=== PATIENT | female | born 1990 | race Caucasian/White ===

== ENCOUNTER 2019-10-05 16:04 | Emergency (ER) | payer OTHER ==
[~2019-10-05] VITALS: Ht 167.6 cm; Wt 77.1 kg
[2019-10-05 16:45] LABS: BASOPHILS ABSOLUTE AUTO 0.07 K/mm3 (0.00-0.23); BASOPHILS PERCENT AUTO 1 % (0-2); EOSINOPHILS ABSOLUTE AUTO 0.33 K/mm3 (0.00-0.68); EOSINOPHILS PERCENT AUTO 3 % (0-6); Hematocrit 37.9 % (33.0-51.0); Hemoglobin 12.3 g/dL (11.5-16.0); IMMATURE GRAN ABSOLUTE AUTO 0.12 K/mm3 (0.00-0.10); IMMATURE GRAN PERCENT AUTO 1 % (0-1); LYMPHOCYTES PERCENT AUTO 16 % (21-46); MONOCYTES ABSOLUTE AUTO 1.37 K/mm3 (0.16-1.47); MONOCYTES PERCENT AUTO 13 % (4-13); Mean Corpuscular HGB 30.4 pg (26.0-34.0); Mean Corpuscular HGB Conc 32.5 g/dL (31.5-36.5); Mean Corpuscular Volume 94 fL (80-100); Mean Platelet Volume 10.4 fL (9.1-12.4); NEUTROPHILS ABSOLUTE AUTO 7.01 K/mm3 (1.96-9.15); NEUTROPHILS PERCENT AUTO 66 % (41-73); Platelet Count 285 K/mm3 (150-400); RDW Coefficient Variation 13.7 % (11.7-14.2); RDW Standard Deviation 46.9 fL (35.1-46.3); Red Blood Cell Count 4.05 M/mm3 (3.80-5.20)
[2019-10-05 17:13] LABS: Alanine Aminotransfer (ALT/SGP 39 U/L (12-78); Albumin, Blood 3.4 g/dL (3.4-5.0); Albumin/Globulin Ratio 1.1 (0.8-1.8); Alk Phos 82 U/L (50-136); Anion Gap 5 mmol/L (6-16); Aspartate Aminotrans (AST/SGOT 31 U/L (12-37); Bilirubin, Total 0.6 mg/dL (0.1-1.0); Blood Urea Nitrogen 13 mg/dL (8-24); Bun/Creatinine Ratio 25.4 (12.0-20.0); CO2, Blood 24 mmol/L (21-32); Calcium, Blood 8.3 mg/dL (8.5-10.1); Chloride, Blood 111 mmol/L (98-108); Creatinine, Blood 0.51 mg/dL (0.40-1.00); Ethanol (Alcohol), Blood, Med <3 mg/dL; Globulin, Blood 3.2 g/dL (2.2-4.0); Glomerular Filtration Rate >60 (60-); Glucose, Blood 92 mg/dL (70-99); Potassium, Blood 3.8 mmol/L (3.5-5.5); Sodium, Blood 140 mmol/L (136-145); Total Protein, Blood 6.6 g/dL (6.4-8.2)
[2019-10-05] MEDS ORDERED: Robaxin-750750 MG PO (17:55)
[2019-10-05] MEDS ORDERED: Norco 5-325 Ta1 EACH PO (17:55)
== END 2019-10-05 18:00 | disposition home or self-care (01) ==
LOC: ER 16:04
PROVIDERS: Physician Assistant
DX: S22.20XA Unspecified fracture of sternum, initial encounter for closed fracture (principal); M25.551 Pain in right hip; R10.13 Epigastric pain; V49.9XXA Car occupant (driver) (passenger) injured in unspecified traffic accident, initial encounter
CPT/HCPCS: 70450; 71260; 74177; 80053; 83690; 84703; 85025; 93005; 93010; G0480; J1170; J7120; Q9967

== ENCOUNTER 2019-10-08 23:09 | Emergency (ER) | payer OTHER ==
[~2019-10-08] VITALS: Ht 167.6 cm; Wt 77.1 kg
[~2019-10-08 23:09] MED LIST: Norco 5-325 Ta1 EACH PO; Robaxin-750750 MG PO
[2019-10-08] MEDS ORDERED: BUPR75 PO (23:25)
[2019-10-09] MEDS ORDERED: MOTRIN IB200 MG PO (00:38)
== END 2019-10-09 00:30 | disposition home or self-care (01) ==
LOC: ER 23:09
DX: S22.20XD Unspecified fracture of sternum, subsequent encounter for fracture with routine healing (principal); V43.52XD Car driver injured in collision with other type car in traffic accident, subsequent encounter; Z79.899 Other long term (current) drug therapy; F17.210 Nicotine dependence, cigarettes, uncomplicated
CPT/HCPCS: 71046; 99283-25; A9270

== ENCOUNTER 2019-10-16 12:18 | Emergency (ER) | payer OTHER ==
[~2019-10-16] VITALS: Ht 165.1 cm; Wt 77.1 kg
[~2019-10-16 12:18] MED LIST changes: +BUPR75 PO; +MOTRIN IB200 MG PO
[2019-10-16] MEDS ORDERED: Roxicodone5 MG PO (14:57)
== END 2019-10-16 15:10 | disposition home or self-care (01) ==
LOC: ER 12:18
DX: S22.20XA Unspecified fracture of sternum, initial encounter for closed fracture (principal); F17.210 Nicotine dependence, cigarettes, uncomplicated
CPT/HCPCS: 71046; 99284-25

== ENCOUNTER → 2019-12-06 | Outpatient (CLI) | payer OTHER ==
[~2019-12-06] MED LIST changes: +Roxicodone5 MG PO
[2019-12-08 14:10] LABS: CHLAMYDIA TRACHOMATIS, NAA Negative (Negative); HPV 16 Negative (Negative); HPV 18 Negative (Negative); HPV OTHER HR TYPES Negative (Negative); NEISSERIA GONORRHOEAE, NAA Negative (Negative)
== END | disposition home or self-care (01) ==
LOC: LAB 12:00 → LAB SHORT 12:00
PROVIDERS: Obstetrics & Gynecology
DX: Z01.419 Encounter for gynecological examination (general) (routine) without abnormal findings (principal)
CPT/HCPCS: 87491; 87591; 87624; G0123

== ENCOUNTER 2019-12-27 01:18 | Emergency (ER) | payer OTHER ==
[~2019-12-27] VITALS: Ht 167.6 cm; Wt 77.6 kg
[2019-12-27] MEDS ORDERED: ALBU90OI (02:02)
[2019-12-27 02:05] LABS: BASOPHILS ABSOLUTE AUTO 0.06 K/mm3 (0.00-0.23); BASOPHILS PERCENT AUTO 1 % (0-2); EOSINOPHILS ABSOLUTE AUTO 0.24 K/mm3 (0.00-0.68); EOSINOPHILS PERCENT AUTO 3 % (0-6); Hematocrit 38.7 % (33.0-51.0); Hemoglobin 12.4 g/dL (11.5-16.0); IMMATURE GRAN ABSOLUTE AUTO 0.03 K/mm3 (0.00-0.10); IMMATURE GRAN PERCENT AUTO 0 % (0-1); LYMPHOCYTES ABSOLUTE AUTO 2.94 K/mm3 (0.84-5.20); LYMPHOCYTES PERCENT AUTO 32 % (21-46); MONOCYTES ABSOLUTE AUTO 0.88 K/mm3 (0.16-1.47); MONOCYTES PERCENT AUTO 10 % (4-13); Mean Corpuscular HGB 29.9 pg (26.0-34.0); Mean Corpuscular Volume 93 fL (80-100); Mean Platelet Volume 10.4 fL (9.1-12.4); NEUTROPHILS PERCENT AUTO 55 % (41-73); Platelet Count 276 K/mm3 (150-400); RDW Coefficient Variation 13.6 % (11.7-14.2); RDW Standard Deviation 46.8 fL (35.1-46.3); Red Blood Cell Count 4.15 M/mm3 (3.80-5.20); White Blood Cell Count 9.25 K/mm3 (4.00-11.30)
[2019-12-27 02:07] LABS: Source, Urine Clean Catch
[2019-12-27 02:10] LABS: Appearance, Urine Hazy (Clear); Bilirubin, Urine Neg (Neg); Blood, Urine 5+ (Neg); Color, Urine Yellow (P-Yellow); Glucose Qualitative, Urine Neg (Neg); Ketones, Urine Neg (Neg); Leukocyte Esterase, Urine 2+ (Neg); Nitrite, Urine Pos (Neg); Protein, Urine 1+ (Neg); Urobilinogen, Urine NORM (Normal)
[2019-12-27 02:16] LABS: Bacteria Many /hpf; Red Blood Cells, Urine 0-2 /hpf (0-2); Squamous Epithelial Cells Many /hpf (Few)
[2019-12-27 02:22] LABS: Alanine Aminotransfer (ALT/SGP 21 U/L (12-78); Albumin, Blood 3.9 g/dL (3.4-5.0); Albumin/Globulin Ratio 1.3 (0.8-1.8); Alk Phos 72 U/L (50-136); Anion Gap 7 mmol/L (6-16); Aspartate Aminotrans (AST/SGOT 16 U/L (12-37); Bilirubin, Total 0.9 mg/dL (0.1-1.0); Blood Urea Nitrogen 5 mg/dL (8-24); Bun/Creatinine Ratio 6.5 (12.0-20.0); CO2, Blood 24 mmol/L (21-32); Calcium, Blood 8.6 mg/dL (8.5-10.1); Chloride, Blood 111 mmol/L (98-108); Creatinine, Blood 0.78 mg/dL (0.40-1.00); Globulin, Blood 3.1 g/dL (2.2-4.0); Glomerular Filtration Rate >60 (60-); Glucose, Blood 89 mg/dL (70-99); Potassium, Blood 3.4 mmol/L (3.5-5.5); Sodium, Blood 142 mmol/L (136-145)
[2019-12-27] MEDS ORDERED: CEFP200 PO (02:33)
[2019-12-27] MEDS ORDERED: ONDA4ODT MM (02:34)
== END 2019-12-27 03:40 | disposition home or self-care (01) ==
LOC: ER 01:18
PROVIDERS: Emergency Medicine
DX: R11.2 Nausea with vomiting, unspecified (principal); N39.0 Urinary tract infection, site not specified; F17.210 Nicotine dependence, cigarettes, uncomplicated; Z79.51 Long term (current) use of inhaled steroids
CPT/HCPCS: 36415; 80053; 81001; 81025; 83690; 85025; 87077; 87086; 87147; 87186; 96361; 96374; 99284-25; A9270-GY; J2405; J7030

== ENCOUNTER 2020-07-14 17:24 | Emergency (ER) | payer OTHER ==
[~2020-07-14] VITALS: Ht 167.6 cm; Wt 67.1 kg
[~2020-07-14 17:24] MED LIST changes: +ALBU90OI; +CEFP200 PO; +ONDA4ODT MM
[2020-07-14 18:07] LABS: BASOPHILS ABSOLUTE AUTO 0.07 K/mm3 (0.00-0.23); BASOPHILS PERCENT AUTO 1 % (0-2); EOSINOPHILS ABSOLUTE AUTO 0.44 K/mm3 (0.00-0.68); EOSINOPHILS PERCENT AUTO 5 % (0-6); Hematocrit 39.7 % (33.0-51.0); Hemoglobin 12.9 g/dL (11.5-16.0); IMMATURE GRAN ABSOLUTE AUTO 0.02 K/mm3 (0.00-0.10); IMMATURE GRAN PERCENT AUTO 0 % (0-1); LYMPHOCYTES ABSOLUTE AUTO 3.33 K/mm3 (0.84-5.20); LYMPHOCYTES PERCENT AUTO 35 % (21-46); MONOCYTES ABSOLUTE AUTO 0.84 K/mm3 (0.16-1.47); MONOCYTES PERCENT AUTO 9 % (4-13); Mean Corpuscular HGB 30.5 pg (26.0-34.0); Mean Corpuscular HGB Conc 32.5 g/dL (31.5-36.5); Mean Corpuscular Volume 94 fL (80-100); Mean Platelet Volume 10.6 fL (9.1-12.4); NEUTROPHILS ABSOLUTE AUTO 4.95 K/mm3 (1.96-9.15); NEUTROPHILS PERCENT AUTO 51 % (41-73); Platelet Count 229 K/mm3 (150-400); RDW Standard Deviation 48.1 fL (35.1-46.3); Red Blood Cell Count 4.23 M/mm3 (3.80-5.20); White Blood Cell Count 9.65 K/mm3 (4.00-11.30)
[2020-07-14 18:24] LABS: Alanine Aminotransfer (ALT/SGP 18 U/L (12-78); Albumin/Globulin Ratio 1.4 (0.8-1.8); Alk Phos 67 U/L (50-136); Anion Gap 8 mmol/L (6-16); Aspartate Aminotrans (AST/SGOT 16 U/L (12-37); Bilirubin, Total 0.5 mg/dL (0.1-1.0); Blood Urea Nitrogen 10 mg/dL (8-24); Bun/Creatinine Ratio 17.9 (12.0-20.0); CO2, Blood 22 mmol/L (21-32); Calcium, Blood 8.8 mg/dL (8.5-10.1); Chloride, Blood 115 mmol/L (98-108); Creatinine, Blood 0.56 mg/dL (0.40-1.00); Globulin, Blood 2.9 g/dL (2.2-4.0); Glomerular Filtration Rate >60 (60-); Glucose, Blood 92 mg/dL (70-99); Potassium, Blood 3.7 mmol/L (3.5-5.5); Sodium, Blood 145 mmol/L (136-145); Total Protein, Blood 6.9 g/dL (6.4-8.2)
[2020-07-14 19:19] LABS: Source, Urine Clean Catch
[2020-07-14 19:24] LABS: Appearance, Urine Hazy (Clear); Bilirubin, Urine Neg (Neg); Blood, Urine Neg (Neg); Color, Urine Yellow (P-Yellow); Glucose Qualitative, Urine Neg (Neg); Ketones, Urine Neg (Neg); Leukocyte Esterase, Urine Neg (Neg); Nitrite, Urine Neg (Neg); Protein, Urine Neg (Neg); Urobilinogen, Urine NORM (Normal)
[2020-07-14 19:30] LABS: Amorphous Light (0-Heavy); Bacteria Not Seen /hpf; Red Blood Cells, Urine Not Seen /hpf (0-2); Squamous Epithelial Cells Rare /hpf (Few)
[2020-07-14 19:31] LABS: White Blood Cells, Urine Rare /hpf (0-5)
== END 2020-07-14 22:54 | disposition home or self-care (01) ==
LOC: ER 17:24
PROVIDERS: Emergency Medicine
DX: R10.32 Left lower quadrant pain (principal); F17.210 Nicotine dependence, cigarettes, uncomplicated
CPT/HCPCS: 36415; 74177; 76856; 80053; 81001; 81025; 83690; 85025; 96374-59; 96375; 99284-25; J1885; J2405; Q9967

== ENCOUNTER 2020-08-05 18:37 | Emergency (ER) | payer OTHER ==
[~2020-08-05] VITALS: Ht 167.6 cm; Wt 67.1 kg
== END 2020-08-05 20:33 | disposition home or self-care (01) ==
LOC: ER 18:37
DX: M79.671 Pain in right foot (principal); F17.210 Nicotine dependence, cigarettes, uncomplicated; W22.8XXA Striking against or struck by other objects, initial encounter
CPT/HCPCS: 73630; 96372; 99283-25; J1885

== ENCOUNTER → 2020-09-05 | Outpatient (CLI) | payer OTHER ==
[~2020-09-05] MED LIST changes: +ACET325; +ALBU90OI INH; +Bentyl10 MG PO; +CEPH500; +GABA100 PO; +HYDR1TAB94 PO; +IBUP800 PO; +LAMO25 PO; +Robaxin750 MG PO; +Vistaril50 MG PO; +ZIPR20 PO
== END | disposition home or self-care (01) ==
LOC: LAB SHORT 18:08 → LAB 18:08
DX: Z34.90 Encounter for supervision of normal pregnancy, unspecified, unspecified trimester (principal)
CPT/HCPCS: 87077; 87086; 87186

== ENCOUNTER 2020-11-19 12:42 | Emergency (ER) | payer OTHER ==
[~2020-11-19] VITALS: Ht 167.6 cm; Wt 74.8 kg
[~2020-11-19 12:42] MED LIST changes: -ACET325; -ALBU90OI INH; -Bentyl10 MG PO; -CEPH500; -GABA100 PO; -HYDR1TAB94 PO; -IBUP800 PO; -LAMO25 PO; -Robaxin750 MG PO; -Vistaril50 MG PO; -ZIPR20 PO
[2020-11-19] MEDS ORDERED: ZIPR20 PO (13:12)
[2020-11-19 14:16] LABS: Source, Urine Clean Catch
[2020-11-19 14:30] LABS: Appearance, Urine Hazy (Clear); Bilirubin, Urine Neg (Neg); Blood, Urine Neg (Neg); Color, Urine Yellow (P-Yellow); Glucose Qualitative, Urine Neg (Neg); Ketones, Urine Neg (Neg); Leukocyte Esterase, Urine 1+ (Neg); Nitrite, Urine Neg (Neg); Protein, Urine Neg (Neg); Urobilinogen, Urine NORM (Normal)
[2020-11-19 14:41] LABS: Amorphous Mod (0-Heavy); Bacteria Many /hpf; Red Blood Cells, Urine 0-2 /hpf (0-2); Squamous Epithelial Cells Mod /hpf (Few)
[2020-12-10] MEDS ORDERED: ALBU90OI INH (19:38)
[2020-12-10] MEDS ORDERED: Bentyl10 MG PO (19:39)
[2020-12-10] MEDS ORDERED: Vistaril50 MG PO (22:13)
[2021-01-29] MEDS ORDERED: GABA100 PO (13:27)
== END 2020-11-19 15:23 | disposition home or self-care (01) ==
LOC: ER 12:42
PROVIDERS: Physician Assistant
DX: D73.4 Cyst of spleen (principal); F17.210 Nicotine dependence, cigarettes, uncomplicated; Z79.899 Other long term (current) drug therapy
CPT/HCPCS: 74176; 81001; 87077; 87086; 87186; 99284-25

== ENCOUNTER 2020-11-27 13:14 | Emergency (ER) | payer OTHER ==
[~2020-11-27] VITALS: Ht 167.6 cm; Wt 72.6 kg
[~2020-11-27 13:14] MED LIST changes: +ZIPR20 PO
[2020-11-27] MEDS ORDERED: IBUP800 PO (13:43)
[2020-11-27] MEDS ORDERED: ACET325 (13:43)
[2020-11-27] MEDS ORDERED: Robaxin750 MG PO (13:44)
[2020-11-27] MEDS ORDERED: CEPH500 (13:44)
[2020-11-27 13:59] LABS: Source, Urine Clean Catch
[2020-11-27 14:19] LABS: Appearance, Urine Clear (Clear); Bilirubin, Urine Neg (Neg); Blood, Urine Neg (Neg); Color, Urine Yellow (P-Yellow); Glucose Qualitative, Urine Neg (Neg); Ketones, Urine Neg (Neg); Leukocyte Esterase, Urine Neg (Neg); Nitrite, Urine Neg (Neg); Protein, Urine Neg (Neg); Urobilinogen, Urine NORM (Normal)
[2020-11-27] MEDS ORDERED: HYDR1TAB94 PO (14:55)
== END 2020-11-27 15:34 | disposition home or self-care (01) ==
LOC: ER 13:14
PROVIDERS: Physician Assistant
DX: R10.12 Left upper quadrant pain (principal); N39.44 Nocturnal enuresis; F17.210 Nicotine dependence, cigarettes, uncomplicated
CPT/HCPCS: 81003; 81025; 99284

== ENCOUNTER → 2020-11-30 | Outpatient (CLI) | payer OTHER ==
[~2020-11-30] MED LIST changes: +ACET325; +CEPH500; +HYDR1TAB94 PO; +IBUP800 PO; +Robaxin750 MG PO
[2020-11-30 20:53] LABS: Adenovirus F 40/41 Not Detected (NOT DETECT); Astrovirus Not Detected (NOT DETECT); Campylobacter Sp Not Detected (NOT DETECT); Cryptosporidium Not Detected (NOT DETECT); Cyclospora Cayetanensis Not Detected (NOT DETECT); E. Coli O157 Not Detected (NOT DETECT); Entamoeba Histolytica Not Detected (NOT DETECT); Enteroaggregative E. coli-EAEC Not Detected (NOT DETECT); Enteropathogenic E. coli-EPEC Not Detected (NOT DETECT); Enterotoxigenic E. coli-ETEC Not Detected (NOT DETECT); Giardia Lamblia Not Detected (NOT DETECT); Norovirus GI/GII Not Detected (NOT DETECT); Plesiomonas Shigelloides Not Detected (NOT DETECT); Rotavirus A Not Detected (NOT DETECT); Salmonella Sp Not Detected (NOT DETECT); Sapovirus Not Detected (NOT DETECT); Shiga Toxin-prod E. coli-STEC Not Detected (NOT DETECT); Shigella/Enteroin E. coli-EIEC Not Detected (NOT DETECT); Vibrio Cholerae Not Detected (NOT DETECT); Vibrio Sp Not Detected (NOT DETECT); Yersinia Enterocolitica Not Detected (NOT DETECT)
== END | disposition home or self-care (01) ==
LOC: LAB SHORT 11:00
PROVIDERS: Family Medicine
DX: K58.0 Irritable bowel syndrome with diarrhea (principal)
CPT/HCPCS: 0097U; 83993

== ENCOUNTER 2021-01-30 08:25 | Day surgery (SDC) | payer OTHER ==
[~2021-01-30] VITALS: Ht 167.6 cm; Wt 73.2 kg
[~2021-01-30 08:25] MED LIST changes: +ALBU90OI INH; +Bentyl10 MG PO; +GABA100 PO; +Vistaril50 MG PO
[2021-01-30] MEDS ORDERED: LAMO25 PO (09:00)
--- NOTE | 2021-01-30 09:48 | NUR ---
PT GIVEN TAP WATER ENEMA. 400ML, PT TOLERATED WELL, RESULTS CLEAR.
--- NOTE | 2021-01-30 10:38 | NUR ---
01/30/21 Rogelio Brown History, Chart, Medications and Allergies reviewed before start of procedure. MONITOR INTACT WITH CONTINUOUS PULSE OXIMETRY AND INTERMITTENT BP. 3-LEAD EKG REVIEWED WITH PHYSICIAN PRIOR TO START OF PROCEDURE. O2 VIA N/C INTACT THROUGHOUT SEDATION/PROCEDURE. PATIENT DETERMINED TO BE ASA APPROPRIATE FOR PROPOFOL SEDATION PRIOR TO START OF PROCEDURE BY DR. VALENZUELA.
--- NOTE | 2021-01-30 11:21 | NUR ---
Patient up to Ambulate independently. Gait steady. Discharge instructions reviewed with patient. Patient verbalizes understanding. Copy given to patient to take home. Discharged via wheelchair to private car for ride home.
== END 2021-01-30 22:43 | disposition home or self-care (01) ==
LOC: ORSCMMR 08:25 → ORD 09:00 → ORSCMMR 09:00
PROVIDERS: Internal Medicine Gastroenterology
PROC: 0DBN8ZX Excision of Sigmoid Colon, Via Natural or Artificial Opening Endoscopic, Diagnostic (ICD-10-PCS; principal; 2021-01-30 09:00)
DX: R10.30 Lower abdominal pain, unspecified (principal); D12.5 Benign neoplasm of sigmoid colon; Z79.899 Other long term (current) drug therapy; F17.210 Nicotine dependence, cigarettes, uncomplicated
CPT/HCPCS: 88305; J2250; J2704; J7120

== ENCOUNTER 2021-03-24 18:52 | Emergency (ER) | payer OTHER ==
[~2021-03-24] VITALS: Ht 167.6 cm; Wt 72.6 kg
[~2021-03-24 18:52] MED LIST changes: +LAMO25 PO
== END 2021-03-24 21:42 | disposition home or self-care (01) ==
LOC: ER 18:52
DX: R11.2 Nausea with vomiting, unspecified (principal); F17.210 Nicotine dependence, cigarettes, uncomplicated; Z88.8 Allergy status to other drugs, medicaments and biological substances; Z79.899 Other long term (current) drug therapy
CPT/HCPCS: 99283; A9270

== ENCOUNTER 2021-11-17 23:03 | Emergency (ER) | payer OTHER ==
[~2021-11-17] VITALS: Ht 157.5 cm; Wt 49.9 kg
[2021-11-17 23:44] LABS: BASOPHILS ABSOLUTE AUTO 0.04 K/mm3 (0.00-0.23); BASOPHILS PERCENT AUTO 1 % (0-2); EOSINOPHILS ABSOLUTE AUTO 0.03 K/mm3 (0.00-0.68); EOSINOPHILS PERCENT AUTO 1 % (0-6); Hematocrit 38.1 % (33.0-51.0); Hemoglobin 12.6 g/dL (11.5-16.0); IMMATURE GRAN ABSOLUTE AUTO 0.03 K/mm3 (0.00-0.10); IMMATURE GRAN PERCENT AUTO 1 % (0-1); LYMPHOCYTES ABSOLUTE AUTO 0.78 K/mm3 (0.84-5.20); LYMPHOCYTES PERCENT AUTO 13 % (21-46); MONOCYTES ABSOLUTE AUTO 1.13 K/mm3 (0.16-1.47); MONOCYTES PERCENT AUTO 19 % (4-13); Mean Corpuscular HGB 31.5 pg (26.0-34.0); Mean Corpuscular HGB Conc 33.1 g/dL (31.5-36.5); Mean Corpuscular Volume 95 fL (80-100); Mean Platelet Volume 10.3 fL (9.1-12.4); NEUTROPHILS ABSOLUTE AUTO 3.86 K/mm3 (1.96-9.15); NEUTROPHILS PERCENT AUTO 66 % (41-73); Platelet Count 241 K/mm3 (150-400); RDW Coefficient Variation 13.2 % (11.7-14.2); RDW Standard Deviation 46.9 fL (35.1-46.3); White Blood Cell Count 5.87 K/mm3 (4.00-11.30)
[2021-11-18] LABS: Influenza A, PCR NEGATIVE (NEGATIVE); Influenza B, PCR NEGATIVE (NEGATIVE); Resp Syncytial Virus, PCR NEGATIVE (NEGATIVE)
[2021-11-18 00:05] LABS: Alanine Aminotransfer (ALT/SGP 24 U/L (12-78); Albumin, Blood 3.8 g/dL (3.4-5.0); Albumin/Globulin Ratio 1.2 (0.8-1.8); Alk Phos 84 U/L (50-136); Anion Gap 5 mmol/L (6-16); Aspartate Aminotrans (AST/SGOT 13 U/L (12-37); Bilirubin, Total 0.4 mg/dL (0.1-1.0); Blood Urea Nitrogen 3 mg/dL (8-24); Bun/Creatinine Ratio 4.8 (12.0-20.0); CO2, Blood 26 mmol/L (21-32); Calcium, Blood 8.5 mg/dL (8.5-10.1); Chloride, Blood 111 mmol/L (98-108); Creatinine, Blood 0.62 mg/dL (0.40-1.00); Globulin, Blood 3.1 g/dL (2.2-4.0); Glomerular Filtration Rate >60 (60-); Glucose, Blood 111 mg/dL (70-99); Potassium, Blood 3.2 mmol/L (3.5-5.5); Sodium, Blood 142 mmol/L (136-145); Total Protein, Blood 6.9 g/dL (6.4-8.2)
[2021-11-18 00:09] LABS: SARS-Cov-2 (COVID-19) PCR, MMC POSITIVE (NEGATIVE)
[2021-11-18] MEDS ORDERED: ONDA4ODT MM (01:29)
== END 2021-11-18 01:47 | disposition home or self-care (01) ==
LOC: ER 23:03
PROVIDERS: Emergency Medicine
DX: U07.1 COVID-19 (principal); F17.210 Nicotine dependence, cigarettes, uncomplicated; Z88.8 Allergy status to other drugs, medicaments and biological substances
CPT/HCPCS: 0241U; 36415; 80053; 81025; 85025; 96374; 99283-25; J2405

== ENCOUNTER 2022-01-10 09:35 | Emergency (ER) | payer OTHER ==
[~2022-01-10] VITALS: Ht 167.6 cm; Wt 63.5 kg
[2022-01-10] MEDS ORDERED: Robaxin750 MG PO (10:32)
[2022-01-10 10:59] LABS: Source, Urine Clean Catch
[2022-01-10 11:05] LABS: BASOPHILS ABSOLUTE AUTO 0.08 K/mm3 (0.00-0.23); BASOPHILS PERCENT AUTO 1 % (0-2); EOSINOPHILS ABSOLUTE AUTO 0.18 K/mm3 (0.00-0.68); EOSINOPHILS PERCENT AUTO 1 % (0-6); Hematocrit 39.9 % (33.0-51.0); Hemoglobin 13.4 g/dL (11.5-16.0); IMMATURE GRAN ABSOLUTE AUTO 0.04 K/mm3 (0.00-0.10); IMMATURE GRAN PERCENT AUTO 0 % (0-1); LYMPHOCYTES ABSOLUTE AUTO 2.69 K/mm3 (0.84-5.20); LYMPHOCYTES PERCENT AUTO 20 % (21-46); MONOCYTES ABSOLUTE AUTO 0.91 K/mm3 (0.16-1.47); MONOCYTES PERCENT AUTO 7 % (4-13); Mean Corpuscular HGB 31.1 pg (26.0-34.0); Mean Corpuscular HGB Conc 33.6 g/dL (31.5-36.5); Mean Corpuscular Volume 93 fL (80-100); Mean Platelet Volume 10.2 fL (9.1-12.4); NEUTROPHILS ABSOLUTE AUTO 9.31 K/mm3 (1.96-9.15); NEUTROPHILS PERCENT AUTO 70 % (41-73); Platelet Count 291 K/mm3 (150-400); RDW Standard Deviation 47.8 fL (35.1-46.3); Red Blood Cell Count 4.31 M/mm3 (3.80-5.20); White Blood Cell Count 13.21 K/mm3 (4.00-11.30)
[2022-01-10 11:09] LABS: Appearance, Urine Hazy (Clear); Bilirubin, Urine Neg (Neg); Blood, Urine Neg (Neg); Color, Urine Yellow (P-Yellow); Glucose Qualitative, Urine Neg (Neg); Ketones, Urine Neg (Neg); Leukocyte Esterase, Urine Neg (Neg); Nitrite, Urine Neg (Neg); Protein, Urine Neg (Neg); Specific Gravity, Urine 1.015 (1.003-1.022); Urobilinogen, Urine NORM (Normal)
[2022-01-10 11:25] LABS: Albumin, Blood 3.8 g/dL (3.4-5.0); Albumin/Globulin Ratio 1.2 (0.8-1.8); Bilirubin, Total 1.1 mg/dL (0.1-1.0); Bun/Creatinine Ratio 12.7 (12.0-20.0); Calcium, Blood 8.7 mg/dL (8.5-10.1); Creatinine, Blood 0.55 mg/dL (0.40-1.00); Globulin, Blood 3.1 g/dL (2.2-4.0); Potassium, Blood 3.9 mmol/L (3.5-5.5); Total Protein, Blood 6.9 g/dL (6.4-8.2)
[2022-01-10 11:27] LABS: Amorphous Mod (0-Heavy); Bacteria Few /hpf; Red Blood Cells, Urine 0-2 /hpf (0-2); Squamous Epithelial Cells Few /hpf (Few); White Blood Cells, Urine 0-2 /hpf (0-5)
[2022-01-10] MEDS ORDERED: ONDA4ODT MM (12:39)
== END 2022-01-10 12:52 | disposition home or self-care (01) ==
LOC: ER 09:35
PROVIDERS: Student in an Organized Health Care Education/Training Program
DX: R11.2 Nausea with vomiting, unspecified (principal); Z86.16 Personal history of COVID-19; Z88.8 Allergy status to other drugs, medicaments and biological substances
CPT/HCPCS: 36415; 80053; 81001; 81025; 83690; 85025; 99283; A9270

== ENCOUNTER 2022-07-27 05:28 | Emergency (ER) | payer OTHER ==
[~2022-07-27] VITALS: Ht 167.6 cm; Wt 68.0 kg
[~2022-07-27 05:28] MED LIST changes: +BENZ100A PO
== END 2022-07-27 09:24 | disposition home or self-care (01) ==
LOC: ER 05:28
DX: D17.21 Benign lipomatous neoplasm of skin and subcutaneous tissue of right arm (principal); F17.210 Nicotine dependence, cigarettes, uncomplicated
CPT/HCPCS: 73201; Q9967

== ENCOUNTER → 2022-07-30 | Outpatient (CLI) | payer OTHER ==
[2022-07-31 10:54] LABS: Candida species (DNA Probe) Negative (NEGATIVE); G. vaginalis (DNA Probe) Positive (NEGATIVE); T. vaginalis (DNA Probe) Negative (NEGATIVE)
[2022-08-02 09:11] LABS: CHLAMYDIA TRACHOMATIS, NAA Negative (Negative)
== END | disposition home or self-care (01) ==
LOC: LAB SHORT 14:00
PROVIDERS: Family Medicine
DX: Z01.419 Encounter for gynecological examination (general) (routine) without abnormal findings (principal)
CPT/HCPCS: 87480; 87491; 87510; 87591; 87660; G0123

== ENCOUNTER 2022-12-29 06:31 | Day surgery (SDC) | payer OTHER ==
[~2022-12-29] VITALS: Ht 167.6 cm; Wt 74.2 kg
[~2022-12-29 06:31] MED LIST changes: +Chantix1 MG PO
--- NOTE | 2022-12-29 07:36 | NUR ---
Ambulatory in Day Surgery. History, Chart, Medications and Allergies reviewed before start of procedure. Lungs clear T/O to Auscultation. Patient confirms NPO status and agrees with scheduled surgery. Pre-Op teaching done. Pt verbalizes understanding. Patient States Post-Procedure ride home has been arranged. PT BELONGINGS PLACED UNDERNEATH GURNEY FOR SAFEKEEPING. PT PURSE GIVEN TO FOR SAFEKEEPING.
[2022-12-29 08:55] VITALS: BP 117/72
[2022-12-29 09:00] VITALS: BP 109/71
[2022-12-29 09:05] VITALS: BP 104/69
[2022-12-29 09:10] VITALS: BP 111/74
[2022-12-29 09:19] VITALS: BP 114/74
--- NOTE | 2022-12-29 09:19 | NUR ---
RECIEVED REPORT FROM ZULMA Sexton RN. PT DENIES NAUSEA OR PAIN. TALKATIVE AND ALERT TO AND ORIENTED X4, SLIGHTLY SLEEPING. SURGICAL INCISION CDI CLOSED WITH EXOFEN. VSS.
[2022-12-29 09:30] VITALS: BP 116/75
--- NOTE | 2022-12-29 09:51 | NUR ---
Patient up to Ambulate independently. Gait steady. Discharge instructions reviewed with patient. Patient verbalizes understanding. Copy given to patient to take home. Patient States Post-Procedure ride home has been arranged. Discharged via wheelchair to private car for ride home. PT TOLERATED PO FOOD AND FLUIDS WELL, CONTINUES TO DENY NAUSEA OR PAIN.
== END 2022-12-29 22:46 | disposition home or self-care (01) ==
LOC: ORSCMMR 06:31 → ORD 08:00 → ORSCMMR 22:46
PROVIDERS: Surgery
PROC: 0JBD0ZX Excision of Right Upper Arm Subcutaneous Tissue and Fascia, Open Approach, Diagnostic (ICD-10-PCS; principal; 2022-12-29 08:00)
DX: D17.1 Benign lipomatous neoplasm of skin and subcutaneous tissue of trunk (principal); J45.909 Unspecified asthma, uncomplicated; Z79.899 Other long term (current) drug therapy; F17.210 Nicotine dependence, cigarettes, uncomplicated
CPT/HCPCS: 88304; J1100; J1885; J2250; J2405; J2704; J2795; J3010; J7120

== ENCOUNTER 2023-08-05 09:34 | Emergency (ER) | payer OTHER ==
[~2023-08-05] VITALS: Ht 175.3 cm; Wt 72.6 kg
[2023-08-05 10:08] LABS: BASOPHILS ABSOLUTE AUTO 0.06 K/mm3 (0.00-0.23); BASOPHILS PERCENT AUTO 1 % (0-2); EOSINOPHILS ABSOLUTE AUTO 0.27 K/mm3 (0.00-0.68); EOSINOPHILS PERCENT AUTO 2 % (0-6); Hematocrit 38.3 % (33.0-51.0); IMMATURE GRAN ABSOLUTE AUTO 0.03 K/mm3 (0.00-0.10); IMMATURE GRAN PERCENT AUTO 0 % (0-1); LYMPHOCYTES ABSOLUTE AUTO 3.19 K/mm3 (0.84-5.20); LYMPHOCYTES PERCENT AUTO 29 % (21-46); MONOCYTES ABSOLUTE AUTO 1.02 K/mm3 (0.16-1.47); MONOCYTES PERCENT AUTO 9 % (4-13); Mean Corpuscular HGB 31.2 pg (26.0-34.0); Mean Corpuscular HGB Conc 33.9 g/dL (31.5-36.5); Mean Corpuscular Volume 92 fL (80-100); Mean Platelet Volume 9.8 fL (9.1-12.4); NEUTROPHILS ABSOLUTE AUTO 6.64 K/mm3 (1.96-9.15); NEUTROPHILS PERCENT AUTO 59 % (41-73); Platelet Count 303 K/mm3 (150-400); RDW Coefficient Variation 13.2 % (11.7-14.2); RDW Standard Deviation 44.4 fL (35.1-46.3); Red Blood Cell Count 4.17 M/mm3 (3.80-5.20); White Blood Cell Count 11.21 K/mm3 (4.00-11.30)
[2023-08-05 10:21] LABS: International Normalized Ratio 1.02; Prothrombin Time Results 10.7 Sec (9.7-11.5)
[2023-08-05 10:39] LABS: Alanine Aminotransfer (ALT/SGP 25 U/L (12-78); Albumin, Blood 3.8 g/dL (3.4-5.0); Albumin/Globulin Ratio 1.1 (0.8-1.8); Alk Phos 72 U/L (50-136); Anion Gap 4 mmol/L (6-16); Aspartate Aminotrans (AST/SGOT 29 U/L (12-37); Beta HCG, Quantitative, Serum <1 mIU/mL (0-3); Blood Urea Nitrogen 9 mg/dL (8-24); Bun/Creatinine Ratio 14.3 (12.0-20.0); CO2, Blood 24 mmol/L (21-32); Calcium, Blood 8.9 mg/dL (8.5-10.1); Chloride, Blood 113 mmol/L (98-108); Creatinine, Blood 0.63 mg/dL (0.40-1.00); Ethanol (Alcohol), Blood, Med <3 mg/dL; Globulin, Blood 3.4 g/dL (2.2-4.0); Glomerular Filtration Rate 120 (60-); Glucose, Blood 93 mg/dL (70-99); Potassium, Blood 4.2 mmol/L (3.5-5.5); Sodium, Blood 141 mmol/L (136-145); Total Protein, Blood 7.2 g/dL (6.4-8.2)
[2023-08-05 10:48] LABS: Source, Urine Clean Catch
[2023-08-05 11:09] LABS: Appearance, Urine Clear (Clear); Bilirubin, Urine Neg (Neg); Blood, Urine Neg (Neg); Glucose Qualitative, Urine Neg (Neg); Ketones, Urine Neg (Neg); Leukocyte Esterase, Urine Neg (Neg); Nitrite, Urine Neg (Neg); Protein, Urine Neg (Neg); Urobilinogen, Urine NORM (Normal)
[2023-08-05] MEDS ORDERED: HYDR1TAB94 PO (11:14)
[2023-08-05] MEDS ORDERED: TIZA4 PO (11:14)
[2023-08-05 11:15] VITALS: BP 119/87
[2023-08-05 12:01] LABS: Color, Urine Pale Yellow (P-Yellow)
[2023-08-05 12:12] LABS: U Amphetamine Screen Not Detected; U Barbituate Screen Not Detected; U Benzodiazapine Screen Not Detected; U Buprenorphine Screen Not Detected; U Cannabinoids Screen DETECTED; U Cocaine Screen Not Detected; U Methadone Screen Not Detected; U Methamphetamine Screen Not Detected; U Opiates Screen Not Detected; U Oxycodone Screen Not Detected; U Phencyclidine Screen Not Detected
== END 2023-08-05 12:10 | disposition home or self-care (01) ==
LOC: ER 09:34
PROVIDERS: Emergency Medicine
DX: S93.401A Sprain of unspecified ligament of right ankle, initial encounter (principal); M25.551 Pain in right hip; M54.2 Cervicalgia; S01.511A Laceration without foreign body of lip, initial encounter; F60.3 Borderline personality disorder; F17.210 Nicotine dependence, cigarettes, uncomplicated; V89.2XXA Person injured in unspecified motor-vehicle accident, traffic, initial encounter; Z88.8 Allergy status to other drugs, medicaments and biological substances
CPT/HCPCS: 29515; 70450; 71260; 72125; 72170; 73600; 74177; 80053; 81003; 83690; 84702; 85025; 85610; 96374; 99285-25; J3010; Q9967

== ENCOUNTER 2024-07-25 15:36 | Emergency (ER) | payer OTHER ==
[~2024-07-25] VITALS: Ht 167.6 cm; Wt 72.6 kg
[~2024-07-25 15:36] MED LIST changes: +TIZA4 PO
[2024-07-25 16:09] VITALS: BP 132/76
[2024-07-25 16:52] LABS: Source, Urine Clean Catch
[2024-07-25 17:03] LABS: Appearance, Urine Clear (Clear); Bilirubin, Urine Neg (Neg); Blood, Urine Neg (Neg); Color, Urine Yellow (P-Yellow); Glucose Qualitative, Urine Neg (Neg); Ketones, Urine Neg (Neg); Leukocyte Esterase, Urine Neg (Neg); Nitrite, Urine Neg (Neg); Protein, Urine Neg (Neg); Urobilinogen, Urine NORM (Normal)
== END 2024-07-25 17:30 | disposition home or self-care (01) ==
LOC: ER 15:36
PROVIDERS: Physician Assistant
DX: R35.0 Frequency of micturition (principal); F17.210 Nicotine dependence, cigarettes, uncomplicated; Z88.8 Allergy status to other drugs, medicaments and biological substances
CPT/HCPCS: 81003; 81025; 99283

== ENCOUNTER → 2024-07-29 | Outpatient (CLI) | payer OTHER ==
[2024-07-30 14:12] LABS: Candida Group, PCR NOT DETECTED (NOT DETECT); Candida glabrata-krusei, PCR NOT DETECTED (NOT DETECT)
[2024-07-30 14:13] LABS: Bacterial Vaginosis PCR Positive (NEGATIVE)
[2024-08-01 12:28] LABS: APTIMA MEDIA TYPE MultiTest Swab; C. TRACHOMATIS BY TMA Negative (Negative); N. GONORRHOEAE BY TMA Negative (Negative); SPECIMEN SOURCE Not Provided
== END ==
LOC: LAB SHORT 15:03 → LAB 15:03
DX: R35.0 Frequency of micturition (principal)
CPT/HCPCS: 87086; 87481; 87491; 87591; 87661; 87801